=== PATIENT | male | born 1985 | race Caucasian/White ===

== ENCOUNTER 2021-01-23 14:04 | Emergency (ER) | payer MEDICAID, OTHER ==
[~2021-01-23] VITALS: Ht 188 cm; Wt 91.0 kg
[2021-01-23 14:07] VITALS: BP_DIAS 84
[2021-01-23] MEDS ORDERED: LIDOCAINE-MPF 1%, 5ML ONE ×2 (14:08→14:21)
[2021-01-23] MEDS ORDERED: DOCU100C33 PO (14:18)
[2021-01-23] MEDS ORDERED: LEVE500T8 PO (14:18)
[2021-01-23] MEDS ORDERED: CEPH-376 PO (14:18)
[2021-01-23] MEDS ORDERED: TRAM50TA2 PO (14:18)
--- NOTE | 2021-01-23 14:18 | NUR ---
PT PRESENTS TO ED AFTER CHEWING OFF SUTURES COVERING AMPUTATED LEFT MIDDLE FINGER. PT SITTING UP IN BED, NAD NOTED AT THIS TIME. RESPIRATIONS EVEN AND UNLABORED ON RA. SIDE RAILS UP. OFFICERS AT BEDSIDE.
[2021-01-23] MEDS ORDERED: LIDOCAINE-MPF 1%, 5ML INFIL ONE (14:30)
[2021-01-23] MEDS ORDERED: BUPIVACAINE 0.25% ONE (14:35)
[2021-01-23] MEDS ORDERED: NEOSPORIN OINT. PKT 1 PACKET ONE (15:03)
[2021-01-23 15:15] VITALS: BP_SYST 130
--- NOTE | 2021-01-23 15:15 | NUR ---
ASSUMED CARE FOR DISCHARGE ONLY Patient/Caregiver given discharge instructions and they have confirmed that they understand the instructions. Patient ambulatory with steady gait. NAD, all questions answered appropriately, denies additional needs at this time. No personal belongings left in room after discharge.
[2021-01-23] MEDS ORDERED: FUROSEMIDE 20 MG TABLET ONE ×2 (23:18→23:49)
[2021-01-23] MEDS ORDERED: CARVEDILOL 12.5 MG TABLET ONE (23:18)
== END 2021-01-23 15:17 | disposition home or self-care (01) ==
LOC: ED 14:34
DX: S61.213A Laceration without foreign body of left middle finger without damage to nail, initial encounter (principal); F28 Other psychotic disorder not due to a substance or known physiological condition; Z89.022 Acquired absence of left finger(s); X58.XXXA Exposure to other specified factors, initial encounter; Y93.89 Activity, other specified; Y92.89 Other specified places as the place of occurrence of the external cause; Y99.8 Other external cause status
CPT/HCPCS: 12041; 99284